=== PATIENT | male | born 1950 | race Asian ===

== ENCOUNTER 2024-03-08 09:49 | Inpatient (IN) | payer MEDICARE, OTHER ==
[~2024-03-08] VITALS: Ht 175.3 cm; Wt 75.3 kg
[2024-03-08] VITALS (27 sets, daily range): BP systolic 76–93; BP diastolic 52–81; PULSE 78–111; RESP 15–22; TEMP 99–99.6
[2024-03-08] MEDS: SODIUM CHLORIDE 0.9% 2,500 ML IV ONE (10:31)
[2024-03-08 10:34] LABS: CHLORIDE 101 mEq/L (98-107); POTASSIUM 4.9 mEq/L (3.5-5.1); SODIUM 134 mEq/L (136-145)
[2024-03-08] MEDS: NOREPINEPHRINE 8MG/250ML PMX 250 ML IV ONE (10:34)
[2024-03-08 10:35] LABS: CALCIUM 9.9 mg/dL (8.7-10.4); HEMATOCRIT. 41.5 % (42.0-52.0); HEMOGLOBIN. 12.4 g/dL (14.0-18.0); MEAN CORPUSCULAR HEMOGLOBIN 24.7 pg (28.0-32.0); MEAN CORPUSCULAR HGB CONC 29.8 g/dL (31.0-37.0); MEAN CORPUSCULAR VOLUME 82.9 fL (80.0-94.0); PLATELET 143 x1000/uL (130-400); RED BLOOD CELL COUNT 5.01 mill/uL (4.7-6.1); RED CELL DISTRIBUTION WIDTH 21.8 % (11.6-14.6); WHITE BLOOD COUNT 24.3 x1000/uL (4.5-11.0)
[2024-03-08] MEDS: PIPERACILLIN/TAZO 3.375G/50ML 50 ML IV ONE (10:35)
[2024-03-08 10:38] LABS: DIFFERENTIAL COMMENT 1
[2024-03-08 10:40] LABS: CREATININE 3.1 mg/dL (0.6-1.3); UREA NITROGEN BLOOD 43 mg/dL (9-23)
[2024-03-08 10:42] LABS: BG BASE EXCESS -25.4 mmol/L (-2.0-2.0); BG CARBOXYHEMOGLOBIN 0.3 % (0.5-1.5); BG DEOXYHEMOGLOBIN 1.7 % (0.0-5.0); BG FRACTION INSPIRED OXYGEN 28; BG HCO3 ACT 3.5 mmol/L (22.0-26.0); BG METHEMOGLOBIN 0.5 % (0.0-1.5); BG OXYGEN SATURATION 98.3 % (92.0-98.5); BG OXYHEMOGLOBIN 97.5 % (94.0-97.0); BG PCO2 13.6 mmHg (35.0-45.0); BG PH 7.029 (7.350-7.450); BG PO2 163.5 mmHg (75.0-100.0); BG SAMPLE SITE RIGHT BRACHIAL; BG TOTAL HEMOGLOBIN 13.2 g/dL (12.0-18.0); BG VENT MODE NASAL CANNULA
[2024-03-08 10:42] LABS: ALANINE AMINOTRANSFERASE 13 IU/L (10-49); ALBUMIN 3.4 g/dL (3.2-4.8); ASPARTATE AMINOTRANSFERASE 10 IU/L (<34); BILIRUBIN DIRECT 0.2 mg/dL (<=3.0); BILIRUBIN TOTAL 0.4 mg/dL (0.1-1.0); CREATINE KINASE 40 IU/L (46-171); PROTEIN TOTAL 8.2 g/dL (6.0-8.3)
[2024-03-08 10:54] LABS: INR 1.3; PROTHROMBIN TIME 13.9 sec (9.6-11.0)
[2024-03-08 11:26] LABS: PLATELET ESTIMATE NORMAL
[2024-03-08 11:28] LABS: HYPOCHROMASIA 1+
[2024-03-08 11:29] LABS: ANISOCYTOSIS 2+
[2024-03-08] MEDS: SODIUM BICARBONATE 8.4% 1 MEQ/ML 50ML SYR IV ONE (11:39)
[2024-03-08] MEDS: VANCOMYCIN 1G PREMIX 200 ML IV ONE (11:45)
[2024-03-08] MEDS: SODIUM CHLORIDE 0.9% 1,000 ML IV ONE (11:45)
[2024-03-08] MEDS ORDERED: PHENYLEPHRINE 50 MG in DEXT 5% WATER 245 ML IV SCH (11:45)
[2024-03-08] MEDS ORDERED: PHENYLEPHRINE 50 MG in DEXTROSE 5% WATER 250 ML IV PRN (12:00)
[2024-03-08] MEDS: PHENYLEPHRINE 50MG/250ML PMX 250 ML IV SCH (12:06)
[2024-03-08 12:33] LABS: CARBON DIOXIDE < 10 mEq/L (21-32)
[2024-03-08 12:34] LABS: GLUCOSE 760 mg/dL (70-105)
[2024-03-08] MEDS: AMIODARONE 150MG/100ML 100 ML IV ONE (12:34)
[2024-03-08 12:40] LABS: TROPONIN I HIGH SENSITIVITY 135 ng/L (3.0-53)
[2024-03-08 12:43] LABS: BETA HYDROXYBUTYRATE 7.9 mMol/L (0.0-0.3)
[2024-03-08] MEDS ORDERED: INSULIN REGULAR (DRIP) 100 UNITS in SODIUM CHLORIDE 0.9% 99 ML IV SCH (12:45)
[2024-03-08] MEDS ORDERED: DEXT 5%/0.9% NACL 1,000 ML IV SCH (12:45)
[2024-03-08] MEDS: INSULIN REGULAR (HUMULIN R) 1000UNITS/10ML VIAL IV ONE (12:45)
[2024-03-08] MEDS: SODIUM CHLORIDE 0.9% 1,000 ML IV SCH ×3 (12:45→18:30)
[2024-03-08] MEDS ORDERED: KCL 20MEQ/100ML PREMIX 100 ML IV PRN (12:45)
[2024-03-08] MEDS: INSULIN REGULAR 100U/100ML PMX 100 ML IV SCH (13:00)
[2024-03-08] MEDS: BLOOD SUGAR DIAGNOSTIC STRIP TEST SCH ×2 (13:00→19:20)
[2024-03-08 13:13] LABS: CLARITY URINE CLEAR (CLEAR); COLOR URINE YELLOW (YELLOW); GLUCOSE URINE 3+ (NEGATIVE); KETONES URINE 2+ (NEGATIVE); LEUKOCYTE ESTERASE URINE NEGATIVE (NEGATIVE); NITRITE URINE NEGATIVE (NEGATIVE); OCCULT BLOOD URINE 2+ (NEGATIVE); PROTEIN URINE 1+ (NEGATIVE); SPECIFIC GRAVITY URINE 1.022 (1.005-1.030); UROBILINOGEN URINE 0.2 E.U./dL (0.2-1.0)
[2024-03-08 13:30] LABS: BACTERIA URINE 1+; RBC URINE 0-2 /hpf (0-2); SQUAMOUS EPITHELIAL CELL URINE RARE /lpf (RARE/1+); WBC URINE 0-2 /hpf (0-2); YEAST URINE NONE SEEN
[2024-03-08 14:11] LABS: PHOSPHORUS 9.5 mg/dL (2.5-4.9)
[2024-03-08 14:37] LABS: TROPONIN I HIGH SENSITIVITY 870 ng/L (3.0-53)
[2024-03-08] MEDS ORDERED: ONDANSETRON HCL 4MG/2ML INJ IV PRN (14:45)
[2024-03-08] MEDS ORDERED: CEFTRIAXONE 1GM/50ML 50 ML IV SCH (15:00)
[2024-03-08] MEDS ORDERED: VANCOMYCIN 750MG/150ML (BAXTER) IV SCH (16:45)
[2024-03-08] MEDS ORDERED: PHENYLEPHRINE 100 MG in DEXT 5% WATER 240 ML IV PRN (17:45)
[2024-03-08] MEDS: PHENYLEPHRINE 100 MG in DEXT 5% WATER 250 ML IV PRN (18:03)
[2024-03-08] MEDS ORDERED: BLOOD SUGAR DIAGNOSTIC STRIP TEST PRN (18:15)
[2024-03-08] MEDS ORDERED: DEXTROSE 50% WATER 50ML SYRINGE IV PRN (18:15)
[2024-03-08] MEDS ORDERED: SODIUM PHOSPHATE 15 MMOL in SODIUM CHLORIDE 0.9% 245 ML IV PRN ×2 (18:15→22:00)
[2024-03-08] MEDS: SODIUM CHLORIDE 0.45% 250 ML IV ONE (19:08)
[2024-03-08 19:28] LABS: *AMPHETAMINES SCREEN URINE NEGATIVE (NEGATIVE)
[2024-03-08 19:29] LABS: *BARBITURATES SCREEN URINE NEGATIVE (NEGATIVE); *BENZODIAZEPINES SCREEN URINE NEGATIVE (NEGATIVE); *COCAINE SCREEN URINE NEGATIVE (NEGATIVE); CANNABINOID URINE SCREEN NEGATIVE (NEGATIVE); ECSTASY MDMA SCREEN URINE NEGATIVE (NEGATIVE); METHADONE URINE SCREEN NEGATIVE (NEGATIVE); OPIATES URINE SCREEN NEGATIVE (NEGATIVE); PHENCYCLIDINE URINE SCREEN NEGATIVE (NEGATIVE)
[2024-03-08] MEDS: MIDODRINE HCL 5MG TABLET PO SCH (19:41)
[2024-03-08] MEDS ORDERED: TERBINAFINE HCL 1% CREAM 15GM TOP SCH (20:00)
[2024-03-08 20:40] LABS: CHLORIDE 118 mEq/L (98-107); POTASSIUM 3.2 mEq/L (3.5-5.1); SODIUM 145 mEq/L (136-145)
[2024-03-08 20:41] LABS: CALCIUM 7.9 mg/dL (8.7-10.4); CARBON DIOXIDE 12 mEq/L (21-32)
[2024-03-08 20:46] LABS: CREATININE 2.2 mg/dL (0.6-1.3); UREA NITROGEN BLOOD 32 mg/dL (9-23)
[2024-03-08 20:48] LABS: PHOSPHORUS 1.5 mg/dL (2.5-4.9)
[2024-03-08 20:52] LABS: GLUCOSE 258 mg/dL (70-105)
[2024-03-08] MEDS: DEXT 5%/0.9% NACL 1,000 ML IV SCH (21:04)
[2024-03-08 21:06] LABS: BG BASE EXCESS -9.5 mmol/L (-2.0-2.0); BG CARBOXYHEMOGLOBIN 0.3 % (0.5-1.5); BG DEOXYHEMOGLOBIN 1.6 % (0.0-5.0); BG FRACTION INSPIRED OXYGEN 28; BG HCO3 ACT 13.7 mmol/L (22.0-26.0); BG METHEMOGLOBIN 0.2 % (0.0-1.5); BG OXYGEN SATURATION 98.4 % (92.0-98.5); BG OXYHEMOGLOBIN 97.9 % (94.0-97.0); BG PCO2 22.8 mmHg (35.0-45.0); BG PH 7.397 (7.350-7.450); BG PO2 130.9 mmHg (75.0-100.0); BG SAMPLE SITE LEFT RADIAL; BG TOTAL HEMOGLOBIN 10.8 g/dL (12.0-18.0); BG VENT MODE NASAL CANNULA
[2024-03-08] MEDS: VANCOMYCIN 750MG/150ML (BAXTER) IV SCH (22:18)
[2024-03-08] MEDS: KETOCONAZOLE 2% CREAM 15GM TOP SCH (23:00)
[2024-03-08] MEDS: MAGNESIUM 2 G PREMIX 50 ML IV PRN (23:09)
[2024-03-08] MEDS: POTASSIUM PHOSPHATE 15 MMOL in DEXT 5% WATER 245 ML IV PRN (23:57)
[2024-03-09] VITALS (88 sets, daily range): BP systolic 75–137; BP diastolic 56–96; PULSE 70–85; RESP 11–26; TEMP 98.2–99
[2024-03-09 01:03] LABS: CHLORIDE 120 mEq/L (98-107); POTASSIUM 2.9 mEq/L (3.5-5.1); SODIUM 145 mEq/L (136-145)
[2024-03-09 01:04] LABS: CALCIUM 7.6 mg/dL (8.7-10.4); CARBON DIOXIDE 14 mEq/L (21-32)
[2024-03-09 01:09] LABS: GLUCOSE 196 mg/dL (70-105); UREA NITROGEN BLOOD 41 mg/dL (9-23)
[2024-03-09 01:11] LABS: PHOSPHORUS 1.3 mg/dL (2.5-4.9)
[2024-03-09 04:21] LABS: BASOPHILS % 0.6 % (0.0-2.0); DIFFERENTIAL COMMENT 0; EOSINOPHILS % 0.6 % (0.0-5.0); HEMATOCRIT. 30.2 % (42.0-52.0); HEMOGLOBIN. 9.5 g/dL (14.0-18.0); LYMPHOCYTES % 20.4 % (20.0-50.0); MEAN CORPUSCULAR HEMOGLOBIN 23.8 pg (28.0-32.0); MEAN CORPUSCULAR HGB CONC 31.4 g/dL (31.0-37.0); MEAN CORPUSCULAR VOLUME 75.8 fL (80.0-94.0); MEAN PLATELET VOLUME 8.9 fl (7.4-10.4); MONOCYTES % 5.8 % (2.0-8.0); NEUTROPHILS % 72.6 % (40.0-76.0); PLATELET 82 x1000/uL (130-400); RED BLOOD CELL COUNT 3.98 mill/uL (4.7-6.1); RED CELL DISTRIBUTION WIDTH 19.5 % (11.6-14.6); WHITE BLOOD COUNT 14.5 x1000/uL (4.5-11.0)
[2024-03-09 04:27] LABS: CHLORIDE 119 mEq/L (98-107); SODIUM 144 mEq/L (136-145)
[2024-03-09 04:28] LABS: CALCIUM 7.5 mg/dL (8.7-10.4); CARBON DIOXIDE 14 mEq/L (21-32)
[2024-03-09 04:33] LABS: CREATININE 1.8 mg/dL (0.6-1.3); GLUCOSE 185 mg/dL (70-105); UREA NITROGEN BLOOD 34 mg/dL (9-23)
[2024-03-09 04:35] LABS: PHOSPHORUS 2.1 mg/dL (2.5-4.9)
[2024-03-09 04:41] LABS: POTASSIUM 2.8 mEq/L (3.5-5.1)
[2024-03-09] MEDS: POTASSIUM CHLORIDE 40 MEQ in SODIUM CHLORIDE 0.9% 230 ML IV PRN (04:43)
[2024-03-09] MEDS: KCL 20MEQ/100ML PREMIX 100 ML IV PRN (04:49)
[2024-03-09 08:22] LABS: CARBON DIOXIDE 14 mEq/L (21-32); CHLORIDE 119 mEq/L (98-107); POTASSIUM 3.7 mEq/L (3.5-5.1); SODIUM 143 mEq/L (136-145)
[2024-03-09 08:23] LABS: CALCIUM 7.8 mg/dL (8.7-10.4)
[2024-03-09 08:28] LABS: CREATININE 1.7 mg/dL (0.6-1.3); GLUCOSE 231 mg/dL (70-105); UREA NITROGEN BLOOD 27 mg/dL (9-23)
[2024-03-09 08:30] LABS: PHOSPHORUS 1.6 mg/dL (2.5-4.9)
[2024-03-09] MEDS: CEFTRIAXONE 1GM/50ML 50 ML IV SCH (09:52)
[2024-03-09 13:00] LABS: POTASSIUM 3.4 mEq/L (3.5-5.1)
[2024-03-09 13:02] LABS: CALCIUM 7.4 mg/dL (8.7-10.4)
[2024-03-09 13:06] LABS: CREATININE 1.7 mg/dL (0.6-1.3)
[2024-03-09 13:09] LABS: PHOSPHORUS 1.1 mg/dL (2.5-4.9)
[2024-03-09] MEDS ORDERED: POTASSIUM CHLORIDE 20 MEQ in DEXT 5%/0.45% NACL 1000ML 1,000 ML IV SCH (14:30)
[2024-03-09] MEDS: DEXT 5%/0.45% NACL KCL 20MEQ/L 1,000 ML IV SCH ×2 (15:23→20:10)
[2024-03-09 16:29] LABS: CHLORIDE 120 mEq/L (98-107); POTASSIUM 3.1 mEq/L (3.5-5.1); SODIUM 147 mEq/L (136-145)
[2024-03-09 16:30] LABS: CALCIUM 7.5 mg/dL (8.7-10.4); CARBON DIOXIDE 13 mEq/L (21-32)
[2024-03-09 16:35] LABS: CREATININE 1.5 mg/dL (0.6-1.3); GLUCOSE 298 mg/dL (70-105); UREA NITROGEN BLOOD 26 mg/dL (9-23)
[2024-03-09 16:58] LABS: PHOSPHORUS 0.7 mg/dL (2.5-4.9)
[2024-03-09] MEDS ORDERED: SODIUM PHOSPHATE IV ONE (18:00)
[2024-03-09] MEDS ORDERED: DEXT 5% IV ONE (18:00)
[2024-03-09] MEDS ORDERED: WATER IV ONE (18:00)
[2024-03-09] MEDS: VANCOMYCIN 750MG PREMIX 150 ML IV SCH (20:52)
[2024-03-09 21:16] LABS: CALCIUM 7.3 mg/dL (8.7-10.4); CARBON DIOXIDE 15 mEq/L (21-32); CHLORIDE 118 mEq/L (98-107); SODIUM 142 mEq/L (136-145)
[2024-03-09 21:20] LABS: CREATININE 1.4 mg/dL (0.6-1.3)
[2024-03-09 21:21] LABS: GLUCOSE 244 mg/dL (70-105)
[2024-03-09 21:22] LABS: UREA NITROGEN BLOOD 22 mg/dL (9-23)
[2024-03-09 21:24] LABS: PHOSPHORUS 1.1 mg/dL (2.5-4.9)
[2024-03-09 21:27] LABS: POTASSIUM 6.5 mEq/L (3.5-5.1)
[2024-03-09] MEDS ORDERED: SODIUM POLYSTYRENE SULFONATE 15 G/60 ML BOT PO ONE (23:00)
[2024-03-09] MEDS: DEXT 5%/0.9% NACL 1,000 ML IV SCH (23:25)
[2024-03-10] VITALS (101 sets, daily range): BP systolic 79–138; BP diastolic 58–91; PULSE 64–86; RESP 10–27; TEMP 98.3–99.3
[2024-03-10] MEDS: SODIUM ZIRCONIUM CYCLOSILICATE 10GM/PACKET PO NR (00:27)
[2024-03-10 04:55] LABS: CALCIUM 7.3 mg/dL (8.7-10.4)
[2024-03-10 05:00] LABS: CREATININE 1.3 mg/dL (0.6-1.3)
[2024-03-10 05:36] LABS: POTASSIUM 3.3 mEq/L (3.5-5.1)
[2024-03-10] MEDS: POTASSIUM PHOSPHATE 20 MMOL in DEXT 5% WATER 250 ML IV NR (07:26)
[2024-03-10 09:13] LABS: POTASSIUM 3.4 mEq/L (3.5-5.1)
[2024-03-10 09:14] LABS: CALCIUM 7.1 mg/dL (8.7-10.4)
[2024-03-10 09:18] LABS: CREATININE 1.2 mg/dL (0.6-1.3)
[2024-03-10] MEDS: VANCOMYCIN 750MG PREMIX 150 ML IV SCH (09:36)
[2024-03-10 10:29] LABS: HEMATOCRIT. 30.5 % (42.0-52.0); HEMOGLOBIN. 9.7 g/dL (14.0-18.0); MEAN CORPUSCULAR HEMOGLOBIN 25.4 pg (28.0-32.0); MEAN CORPUSCULAR HGB CONC 31.7 g/dL (31.0-37.0); MEAN CORPUSCULAR VOLUME 79.9 fL (80.0-94.0); MEAN PLATELET VOLUME 9.6 fl (7.4-10.4); PLATELET 72 x1000/uL (130-400); RED BLOOD CELL COUNT 3.82 mill/uL (4.7-6.1); RED CELL DISTRIBUTION WIDTH 20.5 % (11.6-14.6)
[2024-03-10 10:49] LABS: DIFFERENTIAL COMMENT 1
[2024-03-10] MEDS: DEXT 5%/0.45% NACL KCL 20MEQ/L 1,000 ML IV SCH (11:05)
[2024-03-10] MEDS ORDERED: KCL 20MEQ/100ML PREMIX 100 ML IV ONE (12:00)
[2024-03-10] MEDS ORDERED: BUDE0.25 NEB (12:58)
[2024-03-10] MEDS ORDERED: GLYC10.7 INH (12:59)
[2024-03-10 13:02] LABS: CHLORIDE 117 mEq/L (98-107); POTASSIUM 3.1 mEq/L (3.5-5.1); SODIUM 144 mEq/L (136-145)
[2024-03-10] MEDS ORDERED: ALBU2.5V13 IH (13:02)
[2024-03-10 13:03] LABS: CALCIUM 6.7 mg/dL (8.7-10.4); CARBON DIOXIDE 17 mEq/L (21-32)
[2024-03-10 13:08] LABS: CREATININE 1.1 mg/dL (0.6-1.3); GLUCOSE 315 mg/dL (70-105); UREA NITROGEN BLOOD 18 mg/dL (9-23)
[2024-03-10 13:22] LABS: ANISOCYTOSIS 2+; MICROCYTOSIS 1+; PLATELET ESTIMATE DECREASED
[2024-03-10] MEDS: POTASSIUM PHOSPHATE 30 MMOL in DEXT 5% WATER 490 ML IV SCH (15:17)
[2024-03-10] MEDS ORDERED: MIDODRINE HCL 5MG TABLET PO SCH (17:00)
[2024-03-10] MEDS: MIDODRINE HCL 5MG TABLET PO SCH (19:14)
[2024-03-10 23:28] LABS: CARBON DIOXIDE 18 mEq/L (21-32); CHLORIDE 113 mEq/L (98-107); POTASSIUM 4.1 mEq/L (3.5-5.1); SODIUM 140 mEq/L (136-145)
[2024-03-10 23:34] LABS: GLUCOSE 223 mg/dL (70-105); UREA NITROGEN BLOOD 12 mg/dL (9-23)
[2024-03-10 23:36] LABS: PHOSPHORUS 2.4 mg/dL (2.5-4.9)
[2024-03-11] VITALS (93 sets, daily range): BP systolic 78–147; BP diastolic 55–85; PULSE 59–84; RESP 10–27; TEMP 97.8–99.3
[2024-03-11] MEDS ORDERED: MAGNESIUM 2 G PREMIX 50 ML IV ONE (00:30)
[2024-03-11 03:32] LABS: CHLORIDE 113 mEq/L (98-107); SODIUM 139 mEq/L (136-145)
[2024-03-11 03:33] LABS: CALCIUM 6.9 mg/dL (8.7-10.4); CARBON DIOXIDE 18 mEq/L (21-32)
[2024-03-11 03:38] LABS: GLUCOSE 211 mg/dL (70-105); UREA NITROGEN BLOOD 13 mg/dL (9-23)
[2024-03-11 03:40] LABS: PHOSPHORUS 1.9 mg/dL (2.5-4.9)
[2024-03-11 05:32] LABS: BASOPHILS % 0.3 % (0.0-2.0); EOSINOPHILS % 2.7 % (0.0-5.0); HEMOGLOBIN. 9.2 g/dL (14.0-18.0); LYMPHOCYTES % 23.9 % (20.0-50.0); MEAN CORPUSCULAR HEMOGLOBIN 26.3 pg (28.0-32.0); MEAN CORPUSCULAR HGB CONC 32.8 g/dL (31.0-37.0); MEAN CORPUSCULAR VOLUME 80.1 fL (80.0-94.0); MEAN PLATELET VOLUME 9.5 fl (7.4-10.4); MONOCYTES % 6.5 % (2.0-8.0); NEUTROPHILS % 66.6 % (40.0-76.0); PLATELET 61 x1000/uL (130-400); RED BLOOD CELL COUNT 3.49 mill/uL (4.7-6.1); WHITE BLOOD COUNT 9.6 x1000/uL (4.5-11.0)
[2024-03-11] MEDS: KETOCONAZOLE 2% CREAM 15GM TOP SCH (10:58)
[2024-03-11 12:37] LABS: CHLORIDE 112 mEq/L (98-107); POTASSIUM 4.1 mEq/L (3.5-5.1); SODIUM 138 mEq/L (136-145)
[2024-03-11 12:38] LABS: CALCIUM 6.9 mg/dL (8.7-10.4); CARBON DIOXIDE 18 mEq/L (21-32)
[2024-03-11 12:43] LABS: CREATININE 0.9 mg/dL (0.6-1.3); GLUCOSE 217 mg/dL (70-105); UREA NITROGEN BLOOD 10 mg/dL (9-23)
[2024-03-11 12:45] LABS: ALANINE AMINOTRANSFERASE 8 IU/L (10-49); ALBUMIN 1.8 g/dL (3.2-4.8); ASPARTATE AMINOTRANSFERASE 9 IU/L (<34); BILIRUBIN TOTAL 0.5 mg/dL (0.1-1.0); PHOSPHORUS 2.1 mg/dL (2.5-4.9)
[2024-03-11 12:46] LABS: PROTEIN TOTAL 5.3 g/dL (6.0-8.3)
[2024-03-11] MEDS: POTASSIUM PHOSPHATE 20 MMOL in DEXT 5% WATER 243.3333 ML IV NR (17:45)
[2024-03-11 22:28] LABS: CHLORIDE 112 mEq/L (98-107); POTASSIUM 4.2 mEq/L (3.5-5.1); SODIUM 140 mEq/L (136-145)
[2024-03-11 22:29] LABS: CALCIUM 7.2 mg/dL (8.7-10.4); CARBON DIOXIDE 19 mEq/L (21-32)
[2024-03-11 22:34] LABS: CREATININE 0.9 mg/dL (0.6-1.3); GLUCOSE 177 mg/dL (70-105); UREA NITROGEN BLOOD 9 mg/dL (9-23)
[2024-03-12] VITALS (82 sets, daily range): BP systolic 78–140; BP diastolic 55–82; PULSE 60–92; RESP 10–28; TEMP 97.6–98.3; O2SAT 98–99
[2024-03-12 01:38] LABS: CHLORIDE 112 mEq/L (98-107); POTASSIUM 4.6 mEq/L (3.5-5.1); SODIUM 138 mEq/L (136-145)
[2024-03-12 01:39] LABS: CARBON DIOXIDE 19 mEq/L (21-32)
[2024-03-12 01:40] LABS: CALCIUM 7.1 mg/dL (8.7-10.4)
[2024-03-12 01:44] LABS: CREATININE 0.9 mg/dL (0.6-1.3); GLUCOSE 222 mg/dL (70-105)
[2024-03-12 01:45] LABS: UREA NITROGEN BLOOD 9 mg/dL (9-23)
[2024-03-12 01:47] LABS: PHOSPHORUS 2.2 mg/dL (2.5-4.9)
[2024-03-12 04:14] LABS: BASOPHILS % 0.5 % (0.0-2.0); DIFFERENTIAL COMMENT 0; EOSINOPHILS % 3.3 % (0.0-5.0); HEMATOCRIT. 29.6 % (42.0-52.0); HEMOGLOBIN. 9.9 g/dL (14.0-18.0); LYMPHOCYTES % 24.6 % (20.0-50.0); MEAN CORPUSCULAR HGB CONC 33.4 g/dL (31.0-37.0); MEAN CORPUSCULAR VOLUME 74.8 fL (80.0-94.0); MEAN PLATELET VOLUME 9.6 fl (7.4-10.4); MONOCYTES % 7.1 % (2.0-8.0); NEUTROPHILS % 64.5 % (40.0-76.0); PLATELET 66 x1000/uL (130-400); RED BLOOD CELL COUNT 3.95 mill/uL (4.7-6.1); WHITE BLOOD COUNT 8.9 x1000/uL (4.5-11.0)
[2024-03-12 04:27] LABS: CHLORIDE 112 mEq/L (98-107); POTASSIUM 5.1 mEq/L (3.5-5.1); SODIUM 138 mEq/L (136-145)
[2024-03-12 04:28] LABS: CARBON DIOXIDE 19 mEq/L (21-32)
[2024-03-12 04:33] LABS: CREATININE 0.9 mg/dL (0.6-1.3); GLUCOSE 255 mg/dL (70-105); UREA NITROGEN BLOOD 9 mg/dL (9-23)
[2024-03-12] MEDS: SODIUM CHLORIDE 0.9% 1,000 ML IV SCH (05:23)
[2024-03-12] MEDS: POTASSIUM PHOSPHATE 30 MMOL in DEXT 5% WATER 490 ML IV SCH (10:19)
[2024-03-12] MEDS ORDERED: BUDESONIDE 0.25MG/2ML NEB HHN SCH (10:30)
[2024-03-12 12:48] LABS: CHLORIDE 110 mEq/L (98-107); POTASSIUM 5.4 mEq/L (3.5-5.1); SODIUM 135 mEq/L (136-145)
[2024-03-12 12:49] LABS: CARBON DIOXIDE 19 mEq/L (21-32)
[2024-03-12] MEDS: IPRATROPIUM/ALBUTEROL 0.5-3(2.5)MG/3ML NEB HHN PRN (12:52)
[2024-03-12 12:54] LABS: CREATININE 0.9 mg/dL (0.6-1.3); GLUCOSE 229 mg/dL (70-105); UREA NITROGEN BLOOD 10 mg/dL (9-23)
[2024-03-12 12:56] LABS: PHOSPHORUS 4.1 mg/dL (2.5-4.9)
[2024-03-12] MEDS: MAGNESIUM 2 G PREMIX 50 ML IV NR ×2 (17:27→21:51)
[2024-03-12 18:18] LABS: CHLORIDE 111 mEq/L (98-107); POTASSIUM 4.7 mEq/L (3.5-5.1); SODIUM 136 mEq/L (136-145)
[2024-03-12 18:19] LABS: CALCIUM 7.4 mg/dL (8.7-10.4); CARBON DIOXIDE 20 mEq/L (21-32)
[2024-03-12 18:24] LABS: CREATININE 0.9 mg/dL (0.6-1.3); GLUCOSE 174 mg/dL (70-105); UREA NITROGEN BLOOD 8 mg/dL (9-23)
[2024-03-12 18:26] LABS: PHOSPHORUS 3.1 mg/dL (2.5-4.9)
[2024-03-12] MEDS ORDERED: INSULIN LISPRO 100 UNITS/ML SUBCUT SCH (20:00)
[2024-03-12] MEDS ORDERED: DEXTROSE 50% WATER 50ML SYRINGE IV PRN (20:00)
[2024-03-12] MEDS ORDERED: BLOOD SUGAR DIAGNOSTIC STRIP TEST SCH (20:00)
[2024-03-12] MEDS: BUDESONIDE 0.5MG/2ML NEB HHN SCH (20:39)
[2024-03-12] MEDS: INSULIN LISPRO 100 UNITS/ML SUBCUT SCH (21:00)
[2024-03-12] MEDS: BLOOD SUGAR DIAGNOSTIC STRIP TEST SCH (21:30)
[2024-03-12] MEDS: INSULIN GLARGINE 100 UNITS/ML SUBCUT SCH (22:55)
[2024-03-13] VITALS (15 sets, daily range): BP systolic 80–115; BP diastolic 54–87; PULSE 65–87; RESP 12–27; TEMP 97–98
[2024-03-13 04:52] LABS: BASOPHILS % 0.3 % (0.0-2.0); DIFFERENTIAL COMMENT 0; HEMOGLOBIN. 10.2 g/dL (14.0-18.0); LYMPHOCYTES % 21.7 % (20.0-50.0); MEAN CORPUSCULAR HEMOGLOBIN 25.6 pg (28.0-32.0); MEAN CORPUSCULAR HGB CONC 32.9 g/dL (31.0-37.0); MEAN CORPUSCULAR VOLUME 77.8 fL (80.0-94.0); MEAN PLATELET VOLUME 9.1 fl (7.4-10.4); MONOCYTES % 7.5 % (2.0-8.0); NEUTROPHILS % 67.5 % (40.0-76.0); PLATELET 114 x1000/uL (130-400); RED BLOOD CELL COUNT 3.98 mill/uL (4.7-6.1); WHITE BLOOD COUNT 10.8 x1000/uL (4.5-11.0)
[2024-03-13 05:08] LABS: CARBON DIOXIDE 21 mEq/L (21-32); CHLORIDE 107 mEq/L (98-107); POTASSIUM 4.9 mEq/L (3.5-5.1); SODIUM 135 mEq/L (136-145)
[2024-03-13 05:09] LABS: CALCIUM 7.6 mg/dL (8.7-10.4)
[2024-03-13 05:14] LABS: CREATININE 0.9 mg/dL (0.6-1.3); GLUCOSE 175 mg/dL (70-105); UREA NITROGEN BLOOD 10 mg/dL (9-23)
[2024-03-13 17:27] LABS: HEPATITIS B SURFACE ANTIGEN NEGATIVE (Negative)
[2024-03-13 17:49] LABS: HEPATITIS C AB NON REACTIVE (Neg) (Negative)
[2024-03-13] MEDS ORDERED: LANTUSUD SUBCUT (19:08)
[2024-03-13] MEDS ORDERED: MIDO10TA MT (19:08)
[2024-03-13] MEDS ORDERED: KETO15CR2 TOP (19:08)
[2024-03-14] VITALS (8 sets, daily range): BP systolic 95–119; BP diastolic 53–78; PULSE 65–78; RESP 18–20; TEMP 96.3–98.1; O2SAT 98
[2024-03-14] MEDS: IOHEXOL-300 100 ML BOTTLE ONE (23:30)
[2024-03-15] VITALS: BP 91/50; PULSE 65; RESP 18; TEMP 98.1
[2024-03-15 04:00] VITALS: BP 113/65; PULSE 62; RESP 18; TEMP 97.5
[2024-03-15 07:25] LABS: BASOPHILS % 0.3 % (0.0-2.0); DIFFERENTIAL COMMENT 0; EOSINOPHILS % 3.7 % (0.0-5.0); HEMATOCRIT. 27.2 % (42.0-52.0); HEMOGLOBIN. 8.9 g/dL (14.0-18.0); LYMPHOCYTES % 14.8 % (20.0-50.0); MEAN CORPUSCULAR HGB CONC 32.6 g/dL (31.0-37.0); MEAN CORPUSCULAR VOLUME 76.7 fL (80.0-94.0); MONOCYTES % 11.6 % (2.0-8.0); NEUTROPHILS % 69.6 % (40.0-76.0); PLATELET 167 x1000/uL (130-400); RED BLOOD CELL COUNT 3.55 mill/uL (4.7-6.1); RED CELL DISTRIBUTION WIDTH 17.7 % (11.6-14.6); WHITE BLOOD COUNT 9.3 x1000/uL (4.5-11.0)
[2024-03-15 07:32] LABS: CHLORIDE 104 mEq/L (98-107); POTASSIUM 4.1 mEq/L (3.5-5.1); SODIUM 135 mEq/L (136-145)
[2024-03-15 07:33] LABS: CARBON DIOXIDE 23 mEq/L (21-32)
[2024-03-15 07:34] LABS: CALCIUM 8.1 mg/dL (8.7-10.4)
[2024-03-15 07:38] LABS: CREATININE 1.1 mg/dL (0.6-1.3); GLUCOSE 157 mg/dL (70-105); UREA NITROGEN BLOOD 14 mg/dL (9-23)
[2024-03-15 08:00] VITALS: BP 105/51; PULSE 75; RESP 18; TEMP 99
[2024-03-15 12:00] VITALS: BP 105/68; PULSE 87; RESP 18; TEMP 98
[2024-03-15 16:00] VITALS: BP 133/70; PULSE 64; RESP 18; TEMP 99
[2024-03-15 20:00] VITALS: BP 121/72; PULSE 73; RESP 18; TEMP 97.9
[2024-03-16] VITALS: BP 97/54; PULSE 60; RESP 19; TEMP 97.9
[2024-03-16 04:00] VITALS: BP 91/48; PULSE 75; RESP 18; TEMP 97.5
[2024-03-16 08:00] VITALS: BP 95/55; PULSE 86; RESP 20; TEMP 97.9
[2024-03-16] MEDS: PIPERACILLIN/TAZO 3.375G/50ML 50 ML IV SCH (10:27)
[2024-03-16 12:00] VITALS: BP 126/77; PULSE 60; RESP 18; TEMP 98.1
[2024-03-16 16:00] VITALS: BP 121/64; PULSE 64; RESP 18; TEMP 98.1
[2024-03-16 20:00] VITALS: BP 121/66; PULSE 60; RESP 18; TEMP 98.4
[2024-03-16] MEDS: DIPHENHYDRAMINE 50MG/ML VIAL IV PRN (20:42)
[2024-03-17] VITALS (7 sets, daily range): BP systolic 81–111; BP diastolic 45–64; PULSE 57–87; RESP 18; TEMP 97.1–99.5
[2024-03-17] MEDS ORDERED: DEXAMETHASONE 4MG/ML 1ML VIAL ONE (08:02)
[2024-03-17] MEDS ORDERED: ONDANSETRON HCL 4MG/2ML INJ ONE (08:02)
[2024-03-17] MEDS ORDERED: MIDAZOLAM HCL 2 MG/2 ML VIAL ONE (08:03)
[2024-03-17] MEDS ORDERED: LIDOCAINE HCL 1% 10 MG/ML 10ML VIAL ONE (08:03)
[2024-03-17] MEDS ORDERED: FENTANYL CITRATE/PF 50MCG/ML 2ML VIAL ONE ×2 (08:03→09:35)
[2024-03-17] MEDS ORDERED: PROPOFOL 200MG/20ML VIAL IV ONE ×2 (08:03→08:59)
[2024-03-17] MEDS ORDERED: HYDROMORPHONE HCL/PF 2MG/ML INJ IV PRN (09:00)
[2024-03-17] MEDS ORDERED: ONDANSETRON HCL 4MG/2ML INJ IV PRN (09:00)
[2024-03-17] MEDS ORDERED: FENTANYL CITRATE/PF 50MCG/ML 2ML VIAL IV PRN (09:00)
[2024-03-17 13:27] LABS: CARBON DIOXIDE 19 mEq/L (21-32); CHLORIDE 101 mEq/L (98-107); POTASSIUM 4.7 mEq/L (3.5-5.1); SODIUM 130 mEq/L (136-145)
[2024-03-17 13:28] LABS: CALCIUM 7.9 mg/dL (8.7-10.4)
[2024-03-17 13:31] LABS: HEMATOCRIT. 29.6 % (42.0-52.0); HEMOGLOBIN. 9.3 g/dL (14.0-18.0); MEAN CORPUSCULAR HEMOGLOBIN 24.5 pg (28.0-32.0); MEAN CORPUSCULAR HGB CONC 31.6 g/dL (31.0-37.0); MEAN CORPUSCULAR VOLUME 77.4 fL (80.0-94.0); PLATELET 203 x1000/uL (130-400); RED BLOOD CELL COUNT 3.82 mill/uL (4.7-6.1); WHITE BLOOD COUNT 10.3 x1000/uL (4.5-11.0)
[2024-03-17 13:32] LABS: GLUCOSE 291 mg/dL (70-105)
[2024-03-17 13:33] LABS: CREATININE 1.2 mg/dL (0.6-1.3); UREA NITROGEN BLOOD 16 mg/dL (9-23)
[2024-03-17 13:35] LABS: DIFFERENTIAL COMMENT 1; PHOSPHORUS 3.6 mg/dL (2.5-4.9)
[2024-03-17 20:50] LABS: HYPOCHROMASIA 1+; MICROCYTOSIS 1+; PLATELET ESTIMATE NORMAL
[2024-03-18] VITALS: BP 97/52; PULSE 70; RESP 18; TEMP 97.6
[2024-03-18 04:00] VITALS: BP 96/54; PULSE 58; RESP 17; TEMP 97.5
[2024-03-18 07:45] LABS: POTASSIUM 4.1 mEq/L (3.5-5.1)
[2024-03-18 07:51] LABS: CREATININE 1.3 mg/dL (0.6-1.3)
[2024-03-18 07:58] LABS: BASOPHILS % 0.1 % (0.0-2.0); EOSINOPHILS % 0.1 % (0.0-5.0); HEMATOCRIT. 25.8 % (42.0-52.0); HEMOGLOBIN. 8.3 g/dL (14.0-18.0); MEAN CORPUSCULAR HEMOGLOBIN 25.7 pg (28.0-32.0); MEAN CORPUSCULAR HGB CONC 32.1 g/dL (31.0-37.0); MEAN CORPUSCULAR VOLUME 80.1 fL (80.0-94.0); MEAN PLATELET VOLUME 7.9 fl (7.4-10.4); MONOCYTES % 5.4 % (2.0-8.0); NEUTROPHILS % 85.4 % (40.0-76.0); PLATELET 182 x1000/uL (130-400); RED BLOOD CELL COUNT 3.22 mill/uL (4.7-6.1); RED CELL DISTRIBUTION WIDTH 17.8 % (11.6-14.6); WHITE BLOOD COUNT 11.2 x1000/uL (4.5-11.0)
[2024-03-18 12:00] VITALS: BP 91/47; PULSE 68; RESP 18; TEMP 97.4
[2024-03-18] MEDS: SODIUM CHLORIDE 0.9% 1,000 ML IV SCH (13:09)
[2024-03-18 16:00] VITALS: BP 106/64; PULSE 63; RESP 20; TEMP 97
[2024-03-18 20:00] VITALS: BP 97/64; PULSE 66; RESP 18; TEMP 98.6
[2024-03-19] VITALS (7 sets, daily range): BP systolic 94–128; BP diastolic 47–70; PULSE 60–87; RESP 16–20; TEMP 96.1–98.2
[2024-03-19 05:35] LABS: POTASSIUM 4.6 mEq/L (3.5-5.1)
[2024-03-19 05:41] LABS: CREATININE 1.2 mg/dL (0.6-1.3)
[2024-03-19 06:48] LABS: BASOPHILS % 0.4 % (0.0-2.0); EOSINOPHILS % 1.9 % (0.0-5.0); HEMATOCRIT. 25.3 % (42.0-52.0); HEMOGLOBIN. 8.2 g/dL (14.0-18.0); LYMPHOCYTES % 14.3 % (20.0-50.0); MEAN CORPUSCULAR HEMOGLOBIN 26.8 pg (28.0-32.0); MEAN CORPUSCULAR HGB CONC 32.5 g/dL (31.0-37.0); MEAN CORPUSCULAR VOLUME 82.5 fL (80.0-94.0); MEAN PLATELET VOLUME 7.9 fl (7.4-10.4); MONOCYTES % 5.6 % (2.0-8.0); NEUTROPHILS % 77.8 % (40.0-76.0); PLATELET 212 x1000/uL (130-400); RED BLOOD CELL COUNT 3.07 mill/uL (4.7-6.1); RED CELL DISTRIBUTION WIDTH 18.6 % (11.6-14.6); WHITE BLOOD COUNT 8.1 x1000/uL (4.5-11.0)
[2024-03-19] MEDS: LIDOCAINE HCL 1% 10 MG/ML 10ML VIAL ONE (19:52)
[2024-03-20] VITALS: BP 106/60; PULSE 61; RESP 17; TEMP 97.5
[2024-03-20 04:00] VITALS: BP 99/55; PULSE 72; RESP 17; TEMP 97.5
[2024-03-20 08:00] VITALS: BP 119/70; PULSE 74; RESP 18; TEMP 97.7
[2024-03-20 09:20] LABS: BASOPHILS % 0.3 % (0.0-2.0); EOSINOPHILS % 3.2 % (0.0-5.0); HEMATOCRIT. 30.6 % (42.0-52.0); HEMOGLOBIN. 9.7 g/dL (14.0-18.0); LYMPHOCYTES % 17.1 % (20.0-50.0); MEAN CORPUSCULAR HEMOGLOBIN 25.6 pg (28.0-32.0); MEAN CORPUSCULAR HGB CONC 31.6 g/dL (31.0-37.0); MEAN CORPUSCULAR VOLUME 81.2 fL (80.0-94.0); MEAN PLATELET VOLUME 7.7 fl (7.4-10.4); MONOCYTES % 3.8 % (2.0-8.0); NEUTROPHILS % 75.6 % (40.0-76.0); PLATELET 230 x1000/uL (130-400); RED BLOOD CELL COUNT 3.77 mill/uL (4.7-6.1); RED CELL DISTRIBUTION WIDTH 19.2 % (11.6-14.6); WHITE BLOOD COUNT 6.7 x1000/uL (4.5-11.0)
[2024-03-20 09:32] LABS: CARBON DIOXIDE 22 mEq/L (21-32); CHLORIDE 107 mEq/L (98-107); POTASSIUM 3.6 mEq/L (3.5-5.1); SODIUM 137 mEq/L (136-145)
[2024-03-20 09:33] LABS: CALCIUM 8.4 mg/dL (8.7-10.4)
[2024-03-20 09:38] LABS: GLUCOSE 126 mg/dL (70-105); UREA NITROGEN BLOOD 18 mg/dL (9-23)
[2024-03-20] MEDS: DOCUSATE SODIUM 100MG CAPSULE PO NR (11:03)
[2024-03-20 12:00] VITALS: BP 121/65; PULSE 66; RESP 18; TEMP 97.8
[2024-03-20] MEDS: LACTULOSE 20G/30ML UDC PO NR (13:14)
[2024-03-20 16:00] VITALS: BP 116/70; PULSE 85; RESP 18; TEMP 97.9
[2024-03-20] MEDS ORDERED: NALOXONE HCL 0.4MG/ML VIAL IV PRN (16:30)
[2024-03-20] MEDS: MORPHINE SULFATE 2 MG/ML INJ (NOT FOR IM USE) IV PRN (16:42)
[2024-03-20 20:00] VITALS: BP 106/66; PULSE 76; RESP 19; TEMP 98.6
[2024-03-20] MEDS: FINASTERIDE 5MG TABLET PO SCH (21:19)
[2024-03-20] MEDS: TAMSULOSIN HCL 0.4MG SR CAPSULE PO SCH (21:19)
[2024-03-21] VITALS: BP 102/60; PULSE 74; RESP 18; TEMP 96.8
[2024-03-21 04:00] VITALS: BP 97/60; PULSE 73; RESP 21; TEMP 97.9
[2024-03-21 05:23] LABS: POTASSIUM 3.7 mEq/L (3.5-5.1)
[2024-03-21 05:25] LABS: CALCIUM 7.7 mg/dL (8.7-10.4)
[2024-03-21 05:29] LABS: CREATININE 1.2 mg/dL (0.6-1.3)
[2024-03-21 06:36] LABS: BASOPHILS % 0.4 % (0.0-2.0); EOSINOPHILS % 2.7 % (0.0-5.0); HEMATOCRIT. 25.5 % (42.0-52.0); HEMOGLOBIN. 8.1 g/dL (14.0-18.0); LYMPHOCYTES % 13.6 % (20.0-50.0); MEAN CORPUSCULAR HEMOGLOBIN 25.8 pg (28.0-32.0); MEAN CORPUSCULAR HGB CONC 31.6 g/dL (31.0-37.0); MEAN CORPUSCULAR VOLUME 81.6 fL (80.0-94.0); MEAN PLATELET VOLUME 7.7 fl (7.4-10.4); MONOCYTES % 4.1 % (2.0-8.0); NEUTROPHILS % 79.2 % (40.0-76.0); PLATELET 197 x1000/uL (130-400); RED BLOOD CELL COUNT 3.13 mill/uL (4.7-6.1); RED CELL DISTRIBUTION WIDTH 18.6 % (11.6-14.6); WHITE BLOOD COUNT 7.5 x1000/uL (4.5-11.0)
[2024-03-21 08:03] VITALS: BP 94/55; PULSE 70; RESP 18; TEMP 98.4
[2024-03-21 12:17] VITALS: BP 95/53; PULSE 73; RESP 18; TEMP 98
[2024-03-21 16:00] VITALS: BP 103/63; PULSE 70; RESP 20; TEMP 98
[2024-03-21 20:00] VITALS: BP 106/58; PULSE 81; RESP 20; TEMP 97.4
[2024-03-22] VITALS: BP 101/56; PULSE 76; RESP 16; TEMP 97.7
[2024-03-22 04:00] VITALS: BP 111/69; PULSE 87; RESP 17; TEMP 97.3
[2024-03-22 08:00] VITALS: BP 109/68; PULSE 96; RESP 20; TEMP 98.3
[2024-03-22 08:08] LABS: BASOPHILS % 0.4 % (0.0-2.0); DIFFERENTIAL COMMENT 0; EOSINOPHILS % 3.7 % (0.0-5.0); HEMATOCRIT. 25.5 % (42.0-52.0); HEMOGLOBIN. 7.9 g/dL (14.0-18.0); LYMPHOCYTES % 13.2 % (20.0-50.0); MEAN CORPUSCULAR HEMOGLOBIN 24.8 pg (28.0-32.0); MEAN CORPUSCULAR HGB CONC 31.1 g/dL (31.0-37.0); MEAN CORPUSCULAR VOLUME 79.9 fL (80.0-94.0); MEAN PLATELET VOLUME 7.7 fl (7.4-10.4); MONOCYTES % 5.1 % (2.0-8.0); NEUTROPHILS % 77.6 % (40.0-76.0); PLATELET 191 x1000/uL (130-400); RED CELL DISTRIBUTION WIDTH 19.3 % (11.6-14.6); WHITE BLOOD COUNT 6.8 x1000/uL (4.5-11.0)
[2024-03-22 08:15] LABS: CHLORIDE 112 mEq/L (98-107); POTASSIUM 3.7 mEq/L (3.5-5.1); SODIUM 140 mEq/L (136-145)
[2024-03-22 08:17] LABS: CARBON DIOXIDE 19 mEq/L (21-32)
[2024-03-22 08:21] LABS: CREATININE 1.1 mg/dL (0.6-1.3); GLUCOSE 135 mg/dL (70-105)
[2024-03-22 08:22] LABS: UREA NITROGEN BLOOD 25 mg/dL (9-23)
[2024-03-22] MEDS ORDERED: FINA5TAB11 PO (10:37)
[2024-03-22] MEDS ORDERED: MIDO5TAB4 PO (10:37)
[2024-03-22] MEDS ORDERED: TAMS-11 PO (10:37)
[2024-03-22 12:00] VITALS: BP 102/70; PULSE 108; RESP 20; TEMP 97.9
[2024-03-22 16:00] VITALS: BP 110/62; PULSE 89; RESP 20; TEMP 98.2
[2024-03-22 20:00] VITALS: BP 128/72; PULSE 90; RESP 18; TEMP 98.8
[2024-03-23] VITALS: BP 111/60; PULSE 87; RESP 18; TEMP 98.8
[2024-03-23 04:00] VITALS: BP 102/60; PULSE 78; RESP 19; TEMP 98.8
[2024-03-23 06:17] VITALS: BP 114/60; PULSE 88; TEMP 98.7; O2SAT 98
[2024-03-23 08:00] VITALS: BP 91/39; PULSE 86; RESP 15; TEMP 98.1
[2024-03-23 12:00] VITALS: BP 105/67; PULSE 99; RESP 14; TEMP 97.7
[2024-03-23] MEDS: PNEUMOCOCCAL 23-VAL P-SAC VAC 0.5 ML IM ONE (12:51)
[2024-03-23] MEDS ORDERED: MIDO10TA PO (15:43)
== END 2024-03-23 14:25 | disposition home health service (06) | DRG 853 ==
LOC: ER 09:49 → EDBEDREQ 12:55 → EDBEDREQTM 12:55 → MICUSO 17:05 → 8WST 03-13 11:39
PROVIDERS: ADMIT Internal Medicine; ATTEND Internal Medicine
PROC: 02HV33Z Insertion of Infusion Device into Superior Vena Cava, Percutaneous Approach (ICD-10-PCS; 2024-03-10)
PROC: B548ZZA Ultrasonography of Superior Vena Cava, Guidance (ICD-10-PCS; 2024-03-10)
PROC: 5A0935A Assistance with Respiratory Ventilation, Less than 24 Consecutive Hours, High Flow/Velocity Cannula (ICD-10-PCS; 2024-03-14)
PROC: 0VB08ZZ Excision of Prostate, Via Natural or Artificial Opening Endoscopic (ICD-10-PCS; principal; 2024-03-17)
DX: A41.9 Sepsis, unspecified organism (principal); E11.10 Type 2 diabetes mellitus with ketoacidosis without coma; G92.8 Other toxic encephalopathy; R57.1 Hypovolemic shock; R65.21 Severe sepsis with septic shock; I21.4 Non-ST elevation (NSTEMI) myocardial infarction; N17.9 Acute kidney failure, unspecified; J90 Pleural effusion, not elsewhere classified; N41.2 Abscess of prostate; E87.1 Hypo-osmolality and hyponatremia; I44.7 Left bundle-branch block, unspecified; E86.1 Hypovolemia; I10 Essential (primary) hypertension; I71.9 Aortic aneurysm of unspecified site, without rupture; Z20.822 Contact with and (suspected) exposure to COVID-19; E11.51 Type 2 diabetes mellitus with diabetic peripheral angiopathy without gangrene; B35.3 Tinea pedis; D69.6 Thrombocytopenia, unspecified; N40.0 Benign prostatic hyperplasia without lower urinary tract symptoms; Z90.79 Acquired absence of other genital organ(s); Z86.61 Personal history of infections of the central nervous system
CPT/HCPCS: 36415; 36573; 36600; 71045; 71250; 74176; 74177; 78580; 80048; 80051; 80053; 80076; 80202; 80305; 81003; 82010; 82375; 82550; 82805; 82962; 83036; 83605; 83735; 83880; 83930; 84100; 84145; 84484; 85025; 85379; 86705; 86850; 86900; 87340; 87426; 88305; 93005; 93306; 93970; 94640; 97162; 97166; 99291; A6261; C1725; J0696; J1100; J1200; J1815; J2250; J2270; J2370; J2405; J2543; J2704; J3010; J3370; J3475; J3480; J3490; J7030; J7042; J7050; J7060; J7626; Q9967